=== PATIENT | female | born 1990 | race Caucasian/White ===

== ENCOUNTER 2017-10-11 01:15 | Emergency (ER) | payer OTHER ==
[~2017-10-11] VITALS: Ht 165.1 cm; Wt 52.0 kg
[2017-10-11 01:16] VITALS: BP 159/74; PULSE 110; RESP 16; TEMP 98.6; O2SAT 97
[2017-10-11] MEDS ORDERED: PREN29TA PO (01:43)
[2017-10-11 02:12] LABS: BILIRUBIN, URINE NEG (NEG); BLOOD, URINE MOD (NEG); GLUCOSE,URINE NEG (NEG); KETONE, URINE NEG (NEG); MUCUS URINE FEW /lpf (OCC); NITRITE,URINE NEG (NEG); PH, URINE 6.5 (5.0-8.5); SQUAMOUS EPITHELIAL CELL URINE 1 /hpf (0-5); URINE COLOR LIGHT-YELLOW (YELLW/STRAW); URINE LEUKOCYTE ESTERASE NEG (NEG)
--- NOTE | 2017-10-11 02:13 | PD ---
HPI Chief Complaint: Related Problem Time Seen by Provider: 02:12 Travel History International Travel<30 days: No Contact w/Intl Traveler<30days: No Traveled to known affect area: No History of Present Illness HPI 27-year-old female patient presents to the ER today, 14 weeks , normal , , states that she started having vaginal bleeding at around 11 PM last night. She states she only has mild cramping. She denies any other issues. Modifying Factors: None Associated Signs & Symptoms: and vaginal bleeding Risk Factors: None PFSH Past Medical History Medical History: Denies Significant Hx ?: LMP: 07/05/17 : 1 Para: 0 Past Surgical History Appendectomy: Yes Social History Alcohol Use: No Tobacco Use: No Substance Use: No Allergies-Medications (Allergen,Severity, Reaction): Coded Allergies: No Known Allergies (Unverified , 10/11/17) Reported Meds & Prescriptions Reported Meds & Active Scripts Active Reported Plus Iron 29-1 mg ( Vit-Iron Carbonyl) 29 Mg Iron-1 Mg Tab 1 Tab PO DAILY Review of Systems Except as stated in HPI: all other systems reviewed are Neg Physical Exam Narrative GENERAL: Well-developed young female patient currently in mild distress. Awake and oriented 3. SKIN: Focused skin assessment warm/dry. HEAD: Atraumatic. Normocephalic. EYES: Pupils equal and round. No scleral icterus. No injection or drainage. ENT: No nasal bleeding or discharge. Mucous membranes pink and moist. NECK: Trachea midline. No JVD. Supple. CARDIOVASCULAR: Regular rate and rhythm. No murmur appreciated. RESPIRATORY: No accessory muscle use. Clear to auscultation. Breath sounds equal bilaterally. GASTROINTESTINAL: Abdomen soft, non-tender, nondistended. Hepatic and splenic margins not palpable. GENITOURINARY: Normal external genitalia without lesions or erythema. Vaginal vault with blood. Cervical os was closed without drainage. No cervical motion tenderness. Uterus nontender and appropriately enlarged. Bilateral adnexa nontender without masses. MUSCULOSKELETAL: No obvious deformities. No clubbing. No cyanosis. No edema. NEUROLOGICAL: Awake and alert. No obvious cranial nerve deficits. Motor grossly within normal limits. Normal speech. PSYCHIATRIC: Appropriate mood and affect; insight and judgment normal. Data Data Last Documented VS Vital Signs Date Time Temp Pulse Resp B/P (MAP) Pulse Ox O2 Delivery O2 Flow Rate FiO2 10/11/17 01:16 98.6 110 16 159/74 (102) 97 Room Air Orders Orders Beta Hcg (Quant/Titer) (10/11/17 01:31) Complete Blood Count With Diff (10/11/17 01:31) Basic Metabolic Panel (Bmp) (10/11/17 01:31) Complete Rh (10/11/17 01:31) Urinalysis - C+S If Indicated (10/11/17 01:31) Ed Discharge Order (10/11/17 03:17) Labs Laboratory Tests Test 10/11/17 01:57 White Blood Count 8.2 TH/MM3 Red Blood Count 3.84 MIL/MM3 Hemoglobin 11.9 GM/DL Hematocrit 33.1 % Mean Corpuscular Volume 86.3 FL Mean Corpuscular Hemoglobin 30.9 PG Mean Corpuscular Hemoglobin Concent 35.8 % Red Cell Distribution Width 13.1 % Platelet Count 256 TH/MM3 Mean Platelet Volume 7.3 FL Neutrophils (%) (Auto) 61.7 % Lymphocytes (%) (Auto) 28.6 % Monocytes (%) (Auto) 8.7 % Eosinophils (%) (Auto) 0.7 % Basophils (%) (Auto) 0.3 % Neutrophils # (Auto) 5.1 TH/MM3 Lymphocytes # (Auto) 2.3 TH/MM3 Monocytes # (Auto) 0.7 TH/MM3 Eosinophils # (Auto) 0.1 TH/MM3 Basophils # (Auto) 0.0 TH/MM3 CBC Comment DIFF FINAL Differential Comment Urine Color LIGHT-YELLOW Urine Turbidity CLEAR Urine pH 6.5 Urine Specific Lenore 1.007 Urine Protein NEG mg/dL Urine Glucose (UA) NEG mg/dL Urine Ketones NEG mg/dL Urine Occult Blood MOD Urine Nitrite NEG Urine Bilirubin NEG Urine Urobilinogen LESS THAN 2.0 MG/DL Urine Leukocyte Esterase NEG Urine RBC 1 /hpf Urine WBC LESS THAN 1 /hpf Urine Squamous Epithelial Cells 1 /hpf Urine Mucus FEW /lpf Microscopic Urinalysis Comment CULT NOT INDICATED Blood Urea Nitrogen 9 MG/DL Creatinine 0.53 MG/DL Random Glucose 77 MG/DL Calcium Level 8.7 MG/DL Sodium Level 138 MEQ/L Potassium Level 3.7 MEQ/L Chloride Level 108 MEQ/L Carbon Dioxide Level 21.9 MEQ/L Anion Gap 8 MEQ/L Estimat Glomerular Filtration Rate 137 ML/MIN Human Chorionic Gonadotropin, Quant 75272 MIU/ML MDM Medical Decision Making Medical Screen Exam Complete: Yes Emergency Medical Condition: Yes Medical Record Reviewed: Yes Interpretation(s) Laboratory Tests Test 10/11/17 01:57 Red Blood Count 3.84 MIL/MM3 (4.00-5.30) Hematocrit 33.1 % (35.0-46.0) Monocytes (%) (Auto) 8.7 % (0.0-8.0) Urine Occult Blood MOD (NEG) Urine Mucus FEW /lpf (OCC) Chloride Level 108 MEQ/L (98-107) Human Chorionic Gonadotropin, Quant [id number] MIU/ML (0-5) Differential Diagnosis and vaginal bleeding: Threatened AB versus ectopic versus completed AB Narrative Course Rh+. Cervical os is closed. There is blood within the vaginal vault. Transabdominal ultrasound shows IUP with good heart tones and movements. At this point, my plan would be to release the patient to follow-up with her RN ADMIT in the morning. Pelvic rest. Return for any worsening in bleeding, pain, and as needed. The plan was discussed with the patient and she states understanding. Procedures Procedure Narrative Transabdominal ultrasound was done by me, shows IUP with good heart tones and movements. Heart rate 145. Diagnosis Primary Impression: Threatened Disposition: DISCHARGE HOME Condition: Stable Nathalia Da Silva MD Oct 11, 2017 02:13
[2017-10-11 02:16] LABS: AUTOMATED NEUTROPHIL # 5.1 TH/MM3 (1.8-7.7); BASOPHIL % 0.3 % (0.0-2.0); EOSINOPHIL # 0.1 TH/MM3 (0-0.4); EOSINOPHIL % 0.7 % (0.0-4.0); HEMATOCRIT 33.1 % (35.0-46.0); HEMOGLOBIN 11.9 GM/DL (11.6-15.3); LYMPH % 28.6 % (9.0-44.0); LYMPHOCYTE # 2.3 TH/MM3 (1.0-4.8); MEAN CELL VOLUME 86.3 FL (80.0-100.0); MEAN CORPUSCULAR HEMOGLOBIN 30.9 PG (27.0-34.0); MEAN CORPUSCULAR HGB CONC 35.8 % (32.0-36.0); MEAN PLATELET VOLUME 7.3 FL (7.0-11.0); MONO % 8.7 % (0.0-8.0); MONOCYTE # 0.7 TH/MM3 (0-0.9); NEUT % 61.7 % (16.0-70.0); PLATELET COUNT 256 TH/MM3 (150-450); RED BLOOD COUNT 3.84 MIL/MM3 (4.00-5.30); RED CELL DISTRIBUTION WIDTH 13.1 % (11.6-17.2); WHITE BLOOD COUNT 8.2 TH/MM3 (4.0-11.0)
[2017-10-11 02:34] LABS: BICARBONATE 21.9 MEQ/L (21.0-32.0); CALCIUM 8.7 MG/DL (8.5-10.1); CREATININE 0.53 MG/DL (0.50-1.00)
[2017-10-11 03:28] VITALS: BP 107/72; PULSE 88; RESP 18; O2SAT 98
== END 2017-10-11 04:19 | disposition home or self-care (01) ==
LOC: NEPE 01:15
DX: O20.0 Threatened abortion (principal); Z3A.14 14 weeks gestation of pregnancy
CPT/HCPCS: 80048; 81001; 84702; 85025; 86901

== ENCOUNTER 2018-03-30 17:47 | Inpatient (IN) ==
[2018-03-30] MEDS ORDERED: fentaNYL Citrate Inj 100 MCG/2 ML Ampul IV.PUSH PRN ×2 (18:29)
[2018-03-30] MEDS ORDERED: Sod Chloride 0.9% Inj 1,000 ML IV.CONT PRN (18:29)
[2018-03-30] MEDS ORDERED: Oxytocin 30 Units/500ml Premix 30 UNITS/500 ML BAG IV.SIG ONE (18:29)
[2018-03-30] MEDS ORDERED: Sodium Chlor 0.9% Inj 500 ML IV.SIG PRN (18:29)
[2018-03-30] MEDS ORDERED: Naloxone Inj 0.4 MG/ML Vial IV.PUSH PRN (18:29)
[2018-03-30] MEDS ORDERED: Citric Acid/Sodium Citrate Liq 30 ML UDC PO SCH (18:30)
--- NOTE | 2018-03-30 19:08 | P.HPOB ---
History of Present Illness Primary Care Physician: NOT REQUIRED Dr. Mack Chief Complaint: Contractions History of Present Illness: Patient is a 28-year-old white female 38 weeks goes to the [facility] clinic, and presents complaining of contractions. Denies bleeding or leakage of fluid. She does complain of a headache recently but denies visual changes right upper quadrant pain however she has had some swelling as well in the feet and legs. Her blood pressures are high here 146/97 174/97 158/92. NST is reactive and she is nish. Weeks Gestation:: 38 Para: 0 : 1 - Inpatient Certification I certify that the inpatient services were ordered in accordance with Medicare regulations governing the order. This includes certification that hospital inpatient services are reasonable and necessary and in the case of services not specified as inpatient-only under 42 CFR 419.22(n), that they are appropriately provided as inpatient services in accordance to with the 2-midnight benchmark under 43 CFR 412.3(e) Estimated Total Length of Stay (Days): 3 Plans for Post Hospital Care: Home Review of Systems Constitutional: Reports headache(s) Eyes: Denies blind spots, Denies blurry vision, Denies bulging eyes, Denies change in vision, Denies double vision, Denies discharge, Denies dry eyes, Denies floaters, Denies irritation, Denies itchy eyes, Denies loss of vision, Denies pain, Denies requires corrective lenses, Denies sensitivity to light, Denies other Cardiovascular: Denies chest pain, Denies chest pain at rest, Denies chest pain with activity, Denies excessive sweating, Denies fainting, Denies fast heart rate, Denies foot swelling, Denies generalized swelling, Denies irregular heart rhythm, Denies leg pain with activity, Denies leg sores, Denies leg swelling, Denies lightheadedness, Denies radiating jaw, neck or arm pain, Denies rapid, pounding, or irregular heartbeat, Denies shortness of breath, Denies shortness of breath with activity, Denies shortness of breath when lying down, Denies shortness of breath causing sudden awakening, Denies slow heart rate, Denies other Respiratory: Denies change in phlegm color, Denies chest congestion, Denies cough, Denies coughing up blood, Denies excessive phlegm production, Denies pain on inspiration, Denies pain with cough, Denies shortness of breath, Denies shortness of breath with activity, Denies snoring, Denies stridor, Denies wheezing, Denies other Gastrointestinal: Reports abdominal pain Genitourinary: Denies abnormal periods, Denies abnormal vaginal bleeding, Denies absent period, Denies bleeding between periods, Denies blood in urine, Denies difficulty starting urination, Denies difficulty urinating, Denies dribbling after urination, Denies frequent nighttime urination, Denies genital itching, Denies genital lesions, Denies heavy periods, Denies hot flashes, Denies light periods, Denies nipple discharge, Denies painful intercourse, Denies painful periods, Denies painful urination, Denies pelvic pain, Denies prolapse symptoms, Denies sexual problems, Denies side pain, Denies urinary incontinence, Denies urinary urgency, Denies vaginal discharge, Denies vaginal dryness, Denies vaginal odor, Denies vaginal itching, Denies other Neurologic: Denies abnormal hearing, Denies abnormal movements, Denies abnormal speech, Denies abnormal walking, Denies behavioral changes, Denies burning sensations, Denies confusion, Denies dizziness, Denies fainting, Denies frequent falls, Denies headache(s), Denies lack of coordination, Denies localized weakness, Denies loss of vision, Denies memory loss, Denies numbness, Denies other visual disturbances, Denies radiating pain, Denies restless legs, Denies convulsions, Denies seizure-like activity, Denies sensory deficit, Denies tingling, Denies tingling/numbness/burning sensations, Denies tremor(s), Denies unsteadiness, Denies weakness, Denies other Medications and Allergies Active Medications: Active Medications Citric Acid/Sodium Citrate (Sodium Citrate/Citric Acid Liq) 30 ml PO [employer]DRODYNAMICS [employer] [facility] Stop: 04/03/18 18:29 Fentanyl Citrate (Fentanyl Inj) 50 mcg IV.PUSH Q1H PRN PRN Reason: Pain Scale 3 - 5 Fentanyl Citrate (Fentanyl Inj) 100 mcg IV.PUSH Q1H PRN PRN Reason: PAIN SCALE 6 TO 10 Lactated Ringer's (Lr 1000 Ml Inj) 1,000 mls @ 125 mls/hr IV.CONT .Q8H [facility] Lactated Ringer's (Lr 1000 Ml Inj) 1,000 mls @ 3,000 mls/hr IV.SIG UNSCH PRN PRN Reason: compromise or epidural Sodium Chloride (Ns Inj) 500 mls @ 1,000 mls/hr IV.SIG UNSCH PRN PRN Reason: SEE LABEL COMMENTS Sodium Chloride (Ns Inj) 1,000 mls @ 100 mls/hr IV.CONT .Q10H PRN PRN Reason: SEE LABEL COMMENTS Lidocaine HCl (Xylocaine 1% Inj) 0.1 ml I-DERMAL PRN PRN PRN Reason: For IV start Stop: 04/02/18 18:28 Lidocaine HCl (Xylocaine 1% Inj) 10 ml INFILTRATN PRN PRN PRN Reason: For episiotomy repair Stop: 04/01/18 18:28 Mineral Oil (Muri-Lube Oil) 10 ml TOPICAL PRN PRN PRN Reason: PRN perineal massage Misoprostol (Cytotec) 25 mcg VAGINAL Q4HR [facility] Naloxone HCl (Narcan Inj) 0.1 mg IV.PUSH Q2M PRN PRN Reason: for opiate reversal Sodium Chloride (Ns Flush) 2 ml IV.FLUSH BID [facility]GAN Sodium Chloride (Ns Flush) 2 ml IV.FLUSH PRN PRN PRN Reason: FLUSH AFTER USING IV ACCESS Allergies Allergy/AdvReac Type Severity Reaction Status Date / Time No Known Allergies Allergy Unverified 10/11/17 01:21 Home Medications Medication Instructions Recorded Confirmed Type [id number] ac-dha 1 PO DAILY 03/30/18 History Exam Vital signs: Vital Signs 03/30/18 18:12 03/30/18 18:13 03/30/18 18:22 Temperature 98.1 F Pulse Rate 81 72 Respiratory Rate 18 Blood Pressure 146/97 H 158/92 H Intake & Output 03/30/18 03/30/18 03/31/18 06:59 18:59 06:59 Weight 72.575 kg - Constitutional no acute distress - Routine HEENT Exam Head: Present: normocephalic, atraumatic Eye: Present: PERRL - Routine Respiratory Exam Present: CTA bilaterally - Routine Cardiovascular Exam Present: RRR - Routine Abdominal Exam Present: soft Comments: Size equal dates - Routine Exam Comments: Cervix is fingertip to 1 cm/50%/-3 and very posterior - Routine Extremities Exam Present: edema - Routine Neurological Exam Present: alert, oriented X3, CN II-XII intact Caprini VTE Risk Assessment Caprini VTE Risk Assessment: No/Low Risk (score <= 1) Caprini Risk Assessment Model: Point Value = 1 Point Value = 2 Point Value = 3 Point Value = 5 Age 41-60 Minor surgery BMI > 25 kg/m2 Swollen legs Varicose veins or History of unexplained or recurrent spontaneous Oral contraceptives or hormone replacement Sepsis (< 1 month) Serious lung disease, including pneumonia (< 1 month) Abnormal pulmonary function Acute myocardial infarction Congestive heart failure (< 1 month) History of inflammatory bowel disease Medical patient at bed rest Age 61-74 Arthroscopic surgery Major open surgery (> 45 min) Laparoscopic surgery (> 45 min) Malignancy Confined to bed (> 72 hours) Immobilizing plaster cast Central venous access Age >= 75 History of VTE Family history of VTE Factor V Leiden Prothrombin [id number] Lupus anticoagulant Anticardiolipin antibodies Elevated serum homocysteine Heparin-induced thrombocytopenia Other congenital or acquired thrombophilia Stroke (< 1 month) Elective arthroplasty Hip, pelvis, or leg fracture Acute spinal cord injury (< 1 month) Prophylaxis Regimen: Total Risk Factor Score Risk Level Prophylaxis Regimen 0-1 Low Early ambulation 2 Moderate Order ONE of the following: *Sequential Compression Device (SCD) *Heparin 5000 units SQ BID 3-4 Higher Order ONE of the following medications: *Heparin 5000 units SQ TID *Enoxaparin/Lovenox 40 mg SQ daily (WT < 150 kg, CrCl > 30 mL/min) *Enoxaparin/Lovenox 30 mg SQ daily (WT < 150 kg, CrCl > 10-29 mL/min) *Enoxaparin/Lovenox 30 mg SQ BID (WT < 150 kg, CrCl > 30 mL/min) AND/OR *Sequential Compression Device (SCD) 5 or more Highest Order ONE of the following medications: *Heparin 5000 units SQ TID (Preferred with Epidurals) *Enoxaparin/Lovenox 40 mg SQ daily (WT < 150 kg, CrCl > 30 mL/min) *Enoxaparin/Lovenox 30 mg SQ daily (WT < 150 kg, CrCl > 10-29 mL/min) *Enoxaparin/Lovenox 30 mg SQ BID (WT < 150 kg, CrCl > 30 mL/min) AND *Sequential Compression Device (SCD) Assessment and Plan - Diagnosis (1) Uterine contractions during Code(s): O62.2 - Other uterine inertia Status: Acute (2) Gestational hypertension affecting first Code(s): O13.9 - Gestational [-induced] hypertension without significant proteinuria, unspecified trimester Status: Acute - Plan Plan to admit the patient to labor and delivery mainly for blood pressures in early labor she is nish her cervix is minimally dilated at this time. heart rate tracing is reactive. She is nish. However blood pressures are too high 140-150s over 90s. Plan to begin cervical ripening with Cytotec and induce /augment tomorrow due to hypertension, if her contractions increase on her own or she progresses in labor on her own and all the better plan the delivery in the usual way
[2018-03-30 20:08] LABS: Baso % (Auto) 0.3 % (0.0-2.0); Eos # (Auto) 0.1 th/mm3 (0.0-0.4); Eos % (Auto) 0.6 % (0.0-4.0); Hematocrit 34.3 % (35.0-46.0); Hemoglobin 11.9 gm/dL (11.6-15.3); Lymph # (Auto) 1.7 th/mm3 (1.0-4.8); Lymph % (Auto) 18.1 % (9.0-44.0); Mean Corpuscular HGB Conc 34.8 % (32.0-36.0); Mean Corpuscular Volume 89.1 fL (80.0-100.0); Mean Platelet Volume 9.7 fL (7.0-11.0); Mono # (Auto) 0.8 th/mm3 (0.0-0.9); Mono % (Auto) 8.5 % (0.0-8.0); Neut % (Auto) 72.5 % (16.0-70.0); Platelet Count 244 th/mm3 (150-450); Red Blood Count 3.85 mil/mm3 (4.00-5.30); Red Cell Distribution Width 13.6 % (11.6-17.2); White Blood Count 9.7 th/mm3 (4.0-11.0)
[2018-03-30 20:25] LABS: Albumin 2.8 g/dL (3.4-5.0); Anion Gap 11 meq/L (5-15); Aspartate Aminotransferase 17 U/L (15-37); Blood Urea Nitrogen 10 mg/dL (7-18); Calcium 8.9 mg/dL (8.5-10.1); Carbon Dioxide 22.5 meq/L (21.0-32.0); Chloride 109 meq/L (98-107); Glomerular Filtration Rate Greater Than 89 mL/min (>89); Glucose,Random 70 mg/dL (74-106); Potassium 3.8 meq/L (3.5-5.1); Sodium 142 meq/L (136-145)
[2018-03-30 20:26] LABS: Alanine Aminotransferase 14 U/L (10-53)
[2018-03-30 20:28] LABS: Alkaline Phosphatase 172 U/L (45-117); Total Protein 7.2 g/dL (6.4-8.2)
[2018-03-30 21:04] LABS: Amphetamine Urine With Conf Neg (Neg); Benzodiazepine Urine With Conf Neg (Neg)
[2018-03-30 21:05] LABS: Protein/Creatinine Ratio,Urine 0.72 (0.00-0.14)
[2018-03-30] MEDS ORDERED: Oxytocin 30 Units/500ml Premix 30 UNITS/500 ML BAG IV.SIG PRN (22:50)
[2018-03-30] MEDS ORDERED: Oxytocin 30 Units/500ml Premix 30 UNITS/500 ML BAG IV.CONT PRN (23:22)
[2018-03-31] MEDS ORDERED: fentaNYL 2MCG-Bupiv 0.125% Epi 150 ML EPIDURAL ONE ×2 (02:21→12:41)
[2018-03-31] MEDS ORDERED: Bupivacaine PF 0.25% Inj 10 ML Vial ONE ×2 (02:22→04:06)
--- NOTE | 2018-03-31 07:55 | P.OBLABOR ---
Subjective Interval history: arrived in early labor last evening with elevated BPs not meeting criteria for magnesium but appropriate for admission. Labs normal. started on low dose pitocin and now 4 cm BBOW. Quite miserable and epidrual to be redone. will then AROM and anticipate . Objective Vital Signs: Vital Signs - 8 hr 03/31/18 00:01 03/31/18 00:31 03/31/18 02:35 Pulse Rate 73 64 76 Blood Pressure 164/89 H 154/81 H 153/87 H 03/31/18 02:41 03/31/18 03:25 03/31/18 04:11 Pulse Rate 67 70 72 Blood Pressure 144/78 H 166/94 H 169/86 H 03/31/18 05:35 Pulse Rate 67 Blood Pressure 141/88 H Objective: Pelvic Exam: Cervix: [-] Dilatation: [-] Effacement: [-] Station: [-] Presentation: [-] Membranes: [intact or ruptured] Uterine Contractions: [-] FHT's: Category: [-] Baseline: [-] Reactive: [-] Variability: [-] Decels: [-] Assessment and Plan - Plan Plan to admit the patient to labor and delivery mainly for blood pressures in early labor she is nish her cervix is minimally dilated at this time. heart rate tracing is reactive. She is nish. However blood pressures are too high 140-150s over 90s. Plan to begin cervical ripening with Cytotec and induce /augment tomorrow due to hypertension, if her contractions increase on her own or she progresses in labor on her own and all the better plan the delivery in the usual way
[2018-03-31] MEDS ORDERED: Lidocaine 2%/Epinephrine 1:200,000 PF Inj 20 ML Vial INFILTRATN ONE (12:00)
--- NOTE | 2018-03-31 13:27 | P.OBLABOR ---
Subjective Interval history: having pain w contractins, just got bolus Objective Vital Signs: Vital Signs - 8 hr 03/31/18 05:35 03/31/18 06:55 03/31/18 07:40 Temperature Pulse Rate 67 98 H 69 Respiratory Rate Blood Pressure 141/88 H 169/100 H 159/95 H 03/31/18 08:25 03/31/18 08:40 03/31/18 08:55 Temperature 98.3 F Pulse Rate 84 70 71 Respiratory Rate 20 Blood Pressure 156/85 H 125/66 126/68 03/31/18 09:04 03/31/18 09:15 03/31/18 09:25 Temperature 98.5 F Pulse Rate 74 76 Respiratory Rate 18 Blood Pressure 161/82 H 148/87 H 03/31/18 09:40 03/31/18 10:10 03/31/18 10:30 Temperature Pulse Rate 75 76 65 Respiratory Rate 18 16 Blood Pressure 143/79 H 142/82 H 140/67 03/31/18 10:40 03/31/18 10:55 03/31/18 11:10 Temperature Pulse Rate 66 67 81 Respiratory Rate Blood Pressure 113/60 124/64 163/83 H 03/31/18 11:25 03/31/18 11:40 03/31/18 11:55 Temperature 98.1 F Pulse Rate 74 74 73 Respiratory Rate 18 Blood Pressure 163/88 H 154/80 H 155/90 H 03/31/18 12:10 Temperature Pulse Rate 67 Respiratory Rate Blood Pressure 169/89 H Objective: Pelvic Exam: Cervix: 7-8/90/0 mild molding. OT Ruptured FHT's: Category: I 130, + reactive, neg decel, Ctx q 2 min, iupc placed Assessment and Plan - Plan G1 38 wk, admitted for PIH 1) IOL- 7-8/90/0, on pitocin of 8. right side of cervix developing edema. discussed possibility of arrest, IUPC adequate contractions, over 200mvu, will decrease pit to 6. 2) Pre-e- severe range bp intermittently, will start magnesium 3) GBS neg
[2018-03-31] MEDS ORDERED: Labetalol HCl Inj 100 MG/20 ML Vial IV.PUSH ONE (14:00)
[2018-03-31] MEDS ORDERED: Mag Sulf/Water 40 gm/1000 ml 40 GM/1,000 ML BAG IV.CONT SCH (14:00)
[2018-03-31] MEDS ORDERED: Mag Sulf/Water 4 gm/100 ml 100 ML IV.SIG ONE (14:00)
[2018-03-31] MEDS ORDERED: Calcium Chloride Inj 0.34 GM in Sodium Chlor 0.9% Inj 100 ML IV.SIG PRN (19:25)
[2018-03-31] MEDS ORDERED: Morphine Sulfate PF Inj 5 MG/10 ML Ampul ONE (22:07)
[2018-03-31] MEDS ORDERED: Citric Acid/Sodium Citrate Liq 30 ML UDC PO SCH (22:15)
[2018-03-31] MEDS ORDERED: Naloxone Inj 0.4 MG/ML Vial IV.PUSH PRN (23:00)
[2018-03-31] MEDS ORDERED: Oxytocin 30 Units/500ml Premix 30 UNITS/500 ML BAG IV.SIG ONE (23:49)
[2018-03-31] MEDS ORDERED: Acetaminophen 325 MG Tablet PO PRN (23:49)
[2018-03-31] MEDS ORDERED: Zolpidem Tartrate 5 MG Tablet PO PRN (23:49)
[2018-03-31] MEDS ORDERED: Simethicone 80 MG Chew Tablet PO PRN (23:49)
--- NOTE | 2018-04-01 00:04 | P.OBDELI ---
Procedure Note - Pre Op Diagnosis (1) Pre-eclampsia, severe (2) Arrested labor - Post Op Diagnosis (1) Arrested labor (2) Pre-eclampsia, severe Performed by: Sasha Paez MD Procedure: Primary Low Transverse Section Indication for Delivery: Other (arrest of descent) Informed Consent Obtained: For anesthesia, For procedure Confirmed Correct: Patient, Procedure, Site, Time-out taken Anesthesia: Epidural Medication Prior to Procedure: As documented in eMAR Monitoring During Procedure: Blood pressure monitoring, Pulse oximetry Urinary Catheter: Inserted using sterile technique, To dependent drainage, ml urine output (300) Sterile Preparation: With 2% chlorexidine (Hibiclens) Position: Supine with wedge to right side, Supine with safety belt applied - Operative Features Skin Incision: Pfannenstiel Uterine Incision: Low transverse w/knife / blunt ext Membranes Ruptured: Artificially, Previously, Appearance of fluid (cl) Presentation: Occiput anterior Status of : Viable, Cord blood, Nursery present Placenta Delivered: Intact Medications: Antibiotics, Oxytocin, Prostaglandins Estimated blood loss (mL): 600 Procedure Tolerated: Well Maternal Complications: Uterine atony Maternal Condition: Stable Baby Condition: Stable Procedure in Detail: Indication: Arrest of descent, cephalopelvic disproportion Complications: none Counts: correct x 3 Intraoperative findings: Normal ovaries bilaterally, normal tubes . Uterus with initial poor tone, responded well to hemabate. Procedure in Detail: After review of informed consent, pt was taken to the OR where epidural anesthesia was redosed w/o complication. She had vilchis placed in sterile fashion. SCDs to bilateral extremities. Ancef 1 g IV given preincision. Abdomen and perineum were prepped and draped in sterile fashion. Epidual level tested and appeared adequate. A Pfannenstiel skin incision was made with the scalpel and carried down to the underlying layer of fascia with the bovie.The fascia was incised in the midline; this incision was extended bilaterally w Moeller scissors. The superior edge, followed by the inferior edge, of the fascia was grasped with marcelino clamps, elevated and from the rectus muscles with moeller scissors and bluntly. Rectus musckels were in the middline. Peritoneum was entered bluntly. Bladder blade was inserted. A bladder flap was created with Metzenbaum scissors. The bladder blade was reintroduced. A low transverse uterine incision was made with the scalpel and extended bluntly. Clear amniotic fluid noted. The head was suctioned in the pelvis, significant molding noted. The head was flexed, suction released, and the head was brought to the level of the hysterotomy. Fundal pressure was used to deliver the head and the rest of the body readily followed. There was a short umbilical cord. Delayed cord clamping of 45 seconds was performed. Baby was handed off to team. Cord blood collected. IV infusion of pitocin was started immediately after the delivery of the . The placenta was delivered with cord traction and uterine massage. The uterus was exteriorized . The uterine cavity was cleared with moistened laparotomy sponges. Poor tone was noted and hemabate was given. The uterus was repaired in two layers with number 1 chromic in a running locked fashion followed by an imbricating layer. The posterior cul de sac was irrigated and suctioned. The uterus was noted to be hemostatic. It was returned to the abdomen. The peritoneum was closed with 2-0 chromic in a running fashion. The fascia was closed with number 1 vicryl in a running fashion. The peritoneum was closed with 2-0 chromic in a running fashion. Subcutaneous tissue was irrigated and hemostasis obtained w the bovie. The subcutaneous tissue was undermined with the bovie to ensure a tension free approximation; the subcutaneous tissue was closed with 2-0 chromic in a running fashion. The skin was closed with 3-0 monocryl in a subcuticular fashion. Steristrips and sterile pressure dressing was placed. PT was sent to pacu in stable condition. - : Male Infant Male A Infant Delivery Date: 03/31/18 Infant Delivery Time: 22:00 Weight: 3.82 kg score (1 min): 9 score (5 min): 9
[2018-04-01] MEDS ORDERED: Oxytocin 30 Units/500ml Premix 30 UNITS/500 ML BAG IV.SIG PRN (04:50)
[2018-04-01 06:39] LABS: Baso % (Auto) 0.1 % (0.0-2.0); Hematocrit 28.5 % (35.0-46.0); Hemoglobin 9.7 gm/dL (11.6-15.3); Lymph # (Auto) 1.2 th/mm3 (1.0-4.8); Lymph % (Auto) 4.9 % (9.0-44.0); Mean Corpuscular Hemoglobin 30.4 pg (27.0-34.0); Mean Corpuscular Volume 89.4 fL (80.0-100.0); Mono # (Auto) 1.1 th/mm3 (0.0-0.9); Mono % (Auto) 4.2 % (0.0-8.0); Neut # (Auto) 22.8 th/mm3 (1.8-7.7); Neut % (Auto) 90.8 % (16.0-70.0); Platelet Count 221 th/mm3 (150-450); Red Blood Count 3.19 mil/mm3 (4.00-5.30); Red Cell Distribution Width 13.8 % (11.6-17.2); White Blood Count 25.2 th/mm3 (4.0-11.0)
--- NOTE | 2018-04-01 07:38 | P.PNOB ---
Subjective Post op day: 1 Interval history: Doing well, feels somewhat dizzy, and tired, hard to keep her eyes open, has felt this way since after her , no shortness of breath. Pain controlled , scant vaginal bleeding, no headaches, visual changes, epigastric pain right upper quadrant pain. Objective Vital Signs/I&O: Vital Signs 03/31/18 07:40 03/31/18 08:25 03/31/18 08:40 Temperature 98.3 F Pulse Rate 69 84 70 Respiratory Rate 20 Blood Pressure 159/95 H 156/85 H 125/66 03/31/18 08:55 03/31/18 09:04 03/31/18 09:15 Temperature 98.5 F Pulse Rate 71 74 Respiratory Rate 18 Blood Pressure 126/68 161/82 H 03/31/18 09:25 03/31/18 09:40 03/31/18 10:10 Temperature Pulse Rate 76 75 76 Respiratory Rate 18 Blood Pressure 148/87 H 143/79 H 142/82 H 03/31/18 10:30 03/31/18 10:40 03/31/18 10:55 Temperature Pulse Rate 65 66 67 Respiratory Rate 16 Blood Pressure 140/67 113/60 124/64 03/31/18 11:10 03/31/18 11:25 03/31/18 11:40 Temperature 98.1 F Pulse Rate 81 74 74 Respiratory Rate 18 Blood Pressure 163/83 H 163/88 H 154/80 H 03/31/18 11:55 03/31/18 12:10 03/31/18 12:25 Temperature Pulse Rate 73 67 68 Respiratory Rate Blood Pressure 155/90 H 169/89 H 161/79 H 03/31/18 12:40 03/31/18 13:00 03/31/18 13:10 Temperature 98.9 F Pulse Rate 69 71 73 Respiratory Rate 18 Blood Pressure 164/87 H 148/68 H 148/76 H 03/31/18 13:25 03/31/18 13:55 03/31/18 15:00 Temperature Pulse Rate 84 75 81 Respiratory Rate 18 Blood Pressure 156/91 H 147/75 H 135/69 03/31/18 15:25 03/31/18 15:40 03/31/18 16:00 Temperature 99.3 F Pulse Rate 81 82 83 Respiratory Rate 16 Blood Pressure 129/82 137/83 136/81 03/31/18 16:10 03/31/18 16:15 03/31/18 17:10 Temperature Pulse Rate 87 82 80 Respiratory Rate 16 Blood Pressure 130/74 132/66 126/60 03/31/18 17:15 03/31/18 17:45 03/31/18 18:20 Temperature Pulse Rate 82 95 H 110 H Respiratory Rate 16 Blood Pressure 128/62 158/91 H 158/81 H 03/31/18 18:30 03/31/18 18:45 03/31/18 19:15 Temperature 98.5 F Pulse Rate 96 H Respiratory Rate 20 Blood Pressure 154/85 H 159/79 H 03/31/18 20:00 03/31/18 20:02 03/31/18 20:45 Temperature Pulse Rate 97 H 101 H Respiratory Rate 18 Blood Pressure 152/74 H 151/79 H 145/81 H 03/31/18 21:00 03/31/18 21:06 03/31/18 21:15 Temperature Pulse Rate 91 H 95 H Respiratory Rate 20 Blood Pressure 141/77 H 148/80 H 03/31/18 21:31 03/31/18 22:00 03/31/18 22:15 Temperature Pulse Rate 98 H Respiratory Rate Blood Pressure 142/80 H 129/81 03/31/18 22:18 03/31/18 23:50 04/01/18 00:00 Temperature 98.2 F Pulse Rate 95 H 90 101 H Respiratory Rate 18 18 Blood Pressure 140/78 166/86 H 149/81 H 04/01/18 00:15 04/01/18 00:30 04/01/18 00:41 Temperature Pulse Rate 102 H 94 H Respiratory Rate 18 18 20 Blood Pressure 156/84 H 148/84 H 04/01/18 00:58 04/01/18 02:00 04/01/18 02:21 Temperature Pulse Rate 80 92 H Respiratory Rate 18 18 Blood Pressure 146/75 H 153/77 H 04/01/18 03:00 04/01/18 04:00 04/01/18 04:02 Temperature 98.7 F Pulse Rate 81 80 Respiratory Rate 18 Blood Pressure 133/63 131/58 L 04/01/18 05:00 04/01/18 05:43 04/01/18 05:44 Temperature 98.4 F Pulse Rate 91 H Respiratory Rate 18 Blood Pressure 146/54 H 04/01/18 07:00 Temperature Pulse Rate 88 Respiratory Rate 18 Blood Pressure 136/61 Result Diagrams: 04/01/18 05:58 03/30/18 19:30 Objective Remarks: GENERAL: Well-nourished, well-developed patient. CARDIOVASCULAR: Regular rate and rhythm without murmurs, gallops, or rubs. RESPIRATORY: Breath sounds equal bilaterally. No accessory muscle use. ABDOMEN/GI: Abdomen soft, non-tender, bowel sounds present. Bandage: Clean, dry and intact. Fundus: Firm, non-tender at umbilicus. GENITOURINARY: Light to moderate bleeding. EXTREMITIES: No cyanosis or edema, non-tender, without signs of DVT. SCDs on Medications and IVs: Active Medications Acetaminophen (Tylenol) 650 mg PO Q6H PRN PRN Reason: PAIN SCALE 1 TO 2 Diphenhydramine HCl (Benadryl) 50 mg PO Q6H PRN PRN Reason: MILD TO MODERATE ITCHING Stop: 04/01/18 22:59 Diphenhydramine HCl (Benadryl Inj) 25 mg IV.PUSH Q6H PRN PRN Reason: MILD TO MODERATE ITCHING Stop: 04/01/18 22:59 Diphtheria/Pertussis/Tetanus Vacc (Boostrix Vaccine Inj) 0.5 ml IM .ONCE ONE Stop: 04/01/18 16:01 Fentanyl Citrate (Fentanyl Inj) 50 mcg IV.PUSH Q1H PRN PRN Reason: Pain Scale 3 - 5 Fentanyl Citrate (Fentanyl Inj) 100 mcg IV.PUSH Q1H PRN PRN Reason: PAIN SCALE 6 TO 10 Oxytocin (Pitocin 30 Units/Ns 500 Ml Premix) 30 units in 500 mls @ 1 mls/hr IV.SIG TITRATE PRN; Protocol PRN Reason: For induction of labor Oxytocin (Pitocin 30 Units/Ns 500 Ml Premix) 30 units in 500 mls @ 1 mls/hr IV.CONT TITRATE PRN; Protocol PRN Reason: For induction of labor Lactated Ringer's (Lr 1000 Ml Inj) 1,000 mls @ 75 mls/hr IV.CONT .[id number] MORGAN Last Admin: 04/01/18 00:27 Dose: Not Given Magnesium Sulfate (Magnesium Sulfate/Water 40 Gm/1000 Ml Premix) 40 gm in 1, 000 mls @ 50 mls/hr IV.CONT Q24H MORGAN Stop: 04/01/18 22:00 Last Admin: 03/31/18 14:32 Dose: 2 gm/hr, 50 mls/hr Calcium Chloride 0.34 gm/ (Sodium Chloride) 103.4 mls @ 103.4 mls/hr IV.SIG UNSCH PRN PRN Reason: MAGNESIUM TOXICITY Oxytocin (Pitocin 30 Units/Ns 500 Ml Premix) 30 units in 500 mls @ 100 mls/hr IV.SIG PRN PRN PRN Reason: Heavy bleeding Stop: 04/02/18 04:49 Acetaminophen (Ofirmev Inj) 1,000 mg in 100 mls @ 400 mls/hr IV.SIG Q8H MORGAN Stop: 04/01/18 15:14 Lidocaine HCl (Xylocaine 1% Inj) 0.1 ml I-DERMAL PRN PRN PRN Reason: For IV start Stop: 04/02/18 18:28 Lidocaine HCl (Xylocaine 1% Inj) 10 ml INFILTRATN PRN PRN PRN Reason: For episiotomy repair Stop: 04/01/18 18:28 Measles/Mumps/Rubella Vaccine Live (M-M-R Ii Vaccine Inj) 0.5 ml SQ .ONCE ONE Stop: 04/01/18 16:01 Miscellaneous Information ([facility] [place] [facility]) 1 each OTHER UNSCH PRN PRN Reason: SEE LABEL COMMENTS Stop: 04/01/18 22:59 Naloxone HCl (Narcan Inj) 0.1 mg IV.PUSH Q2M PRN PRN Reason: for opiate reversal Naloxone HCl (Narcan Inj) 0.4 mg IV.PUSH UNSCH PRN PRN Reason: SEE LABEL COMMENTS Stop: 04/01/18 22:59 Ondansetron HCl (Zofran Odt) 4 mg PO Q4H PRN PRN Reason: NAUSEA OR VOMITING Last Admin: 03/31/18 09:19 Dose: 4 mg Oxycodone/Acetaminophen (Percocet 5/325 Mg) 1 tab PO Q4H PRN PRN Reason: PAIN SCALE 3 TO 5 Oxycodone/Acetaminophen (Percocet 5/325 Mg) 2 tab PO Q4H PRN PRN Reason: PAIN SCALE 6 TO 10 Simethicone (Mylicon Chew) 80 mg PO QID PRN PRN Reason: FLATULENCE Sodium Chloride (Ns Flush) 2 ml IV.FLUSH BID COUNT INCLUDES THE [facility] Last Admin: 04/01/18 00:22 Dose: Not Given Sodium Chloride (Ns Flush) 2 ml IV.FLUSH PRN PRN PRN Reason: FLUSH AFTER USING IV ACCESS Sodium Chloride (Ns Flush) 2 ml IV.FLUSH BID MORGAN Sodium Chloride (Ns Flush) 2 ml IV.FLUSH PRN PRN PRN Reason: FLUSH AFTER USING IV ACCESS Zolpidem Tartrate (Ambien) 5 mg PO HS PRN PRN Reason: INSOMNIA Assessment and Plan - Plan s/p PLTCS at 38w for arrest of descent. 1. Postoperative/ day #1: Afebrile, vital signs stable, output appropriate, a.m. hemoglobin appreciated. Will recheck tomorrow. Discussed postoperative precautions, expectations and follow-up. Anticipate discharge home in the next 48 hours. -Male, desires circumcision, did not pay, informed that would need to return to office , pay and then can have it done in 1-2 weeks. 2. Preeclampsia with severe features: Based on severe range blood pressures and protein creatinine ratio of 0.72. Blood pressures normotensive to mild range since delivery. Continue mag 2 g an hour for 24 hours (off 10 PM tonight) . -Discussed preeclampsia precautions, will need 1 week follow-up in the office.
--- NOTE | 2018-04-01 07:43 | P.DS ---
Date of admission: 03/30/18 18:36 Primary care physician: NOT REQUIRED Brief History from admission: 28-year-old 001 who presented to triage for contractions, was found to have elevated blood pressures, was diagnosed with preeclampsia with severe features and was induced. She progressed to complete had arrest of descent and underwent a primary low transverse section. On postoperative day #2 patient subjectively complained of weakness and numbness in her left lower extremity, an MRI of the thoracic and lumbar spine revealed no spinal hematoma, given the prolonged second stage and pushing efforts was believed a mild stretch injury to the femoral nerve, neurology saw the patient and agreed. Physical therapy saw the patient as well who recommended no outpatient therapy. Also on postoperative day #3 she required IV medication to control her blood pressure, was started on labetalol 200 mg twice a day, she was seen by my partner the following morning please see her documentation for any further interventions. On postoperative day #4 she was meeting all of her milestones and was discharged home DS: Medications - Discharge Medications Prescriptions: amlodipine [Norvasc] 5 mg PO DAILY 30 Days #30 tab ibuprofen [Motrin IB] 600 mg PO QID PRN 30 Days tab PRN Reason: Pain ibuprofen 600 mg PO Q6HR PRN 10 Days #60 tab PRN Reason: cramping labetalol 200 mg PO BID #60 tab oxycodone-acetaminophen [Percocet] 1 tab PO Q4-6H PRN #15 tab PRN Reason: Pain [id number] 1 cap PO DAILY 30 Days #30 tab-cap DS: Summary Hospital Course: See brief history - Time Spent with Patient Total time spent providing and/or coordinating discharge services: Exam Vital signs: Vital Signs 03/31/18 08:25 03/31/18 08:40 03/31/18 08:55 Temperature 98.3 F Pulse Rate 84 70 71 Respiratory Rate 20 Blood Pressure 156/85 H 125/66 126/68 03/31/18 09:04 03/31/18 09:15 03/31/18 09:25 Temperature 98.5 F Pulse Rate 74 76 Respiratory Rate 18 Blood Pressure 161/82 H 148/87 H 03/31/18 09:40 03/31/18 10:10 03/31/18 10:30 Temperature Pulse Rate 75 76 65 Respiratory Rate 18 16 Blood Pressure 143/79 H 142/82 H 140/67 03/31/18 10:40 03/31/18 10:55 03/31/18 11:10 Temperature Pulse Rate 66 67 81 Respiratory Rate Blood Pressure 113/60 124/64 163/83 H 03/31/18 11:25 03/31/18 11:40 03/31/18 11:55 Temperature 98.1 F Pulse Rate 74 74 73 Respiratory Rate 18 Blood Pressure 163/88 H 154/80 H 155/90 H 03/31/18 12:10 03/31/18 12:25 03/31/18 12:40 Temperature Pulse Rate 67 68 69 Respiratory Rate Blood Pressure 169/89 H 161/79 H 164/87 H 03/31/18 13:00 03/31/18 13:10 03/31/18 13:25 Temperature 98.9 F Pulse Rate 71 73 84 Respiratory Rate 18 Blood Pressure 148/68 H 148/76 H 156/91 H 03/31/18 13:55 03/31/18 15:00 03/31/18 15:25 Temperature 99.3 F Pulse Rate 75 81 81 Respiratory Rate 18 Blood Pressure 147/75 H 135/69 129/82 03/31/18 15:40 03/31/18 16:00 03/31/18 16:10 Temperature Pulse Rate 82 83 87 Respiratory Rate 16 Blood Pressure 137/83 136/81 130/74 03/31/18 16:15 03/31/18 17:10 03/31/18 17:15 Temperature Pulse Rate 82 80 82 Respiratory Rate 16 16 Blood Pressure 132/66 126/60 128/62 03/31/18 17:45 03/31/18 18:20 03/31/18 18:30 Temperature Pulse Rate 95 H 110 H 96 H Respiratory Rate Blood Pressure 158/91 H 158/81 H 154/85 H 03/31/18 18:45 03/31/18 19:15 03/31/18 20:00 Temperature 98.5 F Pulse Rate 97 H Respiratory Rate 20 18 Blood Pressure 159/79 H 152/74 H 03/31/18 20:02 03/31/18 20:45 03/31/18 21:00 Temperature Pulse Rate 101 H 91 H Respiratory Rate Blood Pressure 151/79 H 145/81 H 141/77 H 03/31/18 21:06 03/31/18 21:15 03/31/18 21:31 Temperature Pulse Rate 95 H Respiratory Rate 20 Blood Pressure 148/80 H 142/80 H 03/31/18 22:00 03/31/18 22:15 03/31/18 22:18 Temperature Pulse Rate 98 H 95 H Respiratory Rate Blood Pressure 129/81 140/78 03/31/18 23:50 04/01/18 00:00 04/01/18 00:15 Temperature 98.2 F Pulse Rate 90 101 H 102 H Respiratory Rate 18 18 18 Blood Pressure 166/86 H 149/81 H 156/84 H 04/01/18 00:30 04/01/18 00:41 04/01/18 00:58 Temperature Pulse Rate 94 H 80 Respiratory Rate 18 20 Blood Pressure 148/84 H 146/75 H 04/01/18 02:00 04/01/18 02:21 04/01/18 03:00 Temperature 98.7 F Pulse Rate 92 H 81 Respiratory Rate 18 18 Blood Pressure 153/77 H 133/63 04/01/18 04:00 04/01/18 04:02 04/01/18 05:00 Temperature Pulse Rate 80 Respiratory Rate 18 Blood Pressure 131/58 L 146/54 H 04/01/18 05:43 04/01/18 05:44 04/01/18 07:00 Temperature 98.4 F Pulse Rate 91 H 88 Respiratory Rate 18 18 Blood Pressure 136/61 Results Procedures completed during hospitalization: Primary low transverse section Labs on day of discharge: Labs from last 24 hours 04/01/18 05:58 CBC w Diff Slide review pending WBC 25.2 H RBC 3.19 L Hgb 9.7 L D Hct 28.5 L MCV 89.4 MCH 30.4 MCHC 34.0 RDW 13.8 Plt Count 221 MPV 9.0 Neut % (Auto) 90.8 H Lymph % (Auto) 4.[address] [place] % (Auto) 4.2 Eos % (Auto) 0.0 Baso % (Auto) 0.1 Neut # (Auto) 22.8 H Lymph # (Auto) 1.2 [place] # (Auto) 1.1 H Eos # (Auto) 0.0 Baso # (Auto) 0.0 WBC Differential . Differential Comment . Discharge Plan - Discharge Disposition Patient Disposition: 01 Discharge Home - Discharge Condition Condition: Stable - Discharge Order Discharge Orders: Discharge Order (Routine); Ordered 04/04/18 Ordered By: Osiris Costa - Discharge Details Anticipated Discharge Date: 04/04/18 - Physicians Team Primary Care Provider: NOT REQUIRED, Attending Provider: Osiris Costa Other Providers: Moises Recinos MD
[2018-04-01 08:05] LABS: Lymphocytes 6 % (9-44); Monocytes 1 % (0-8)
[2018-04-01 08:06] LABS: Platelet Estimate Normal (Normal); Platelet Morphology Normal (Normal)
[2018-04-01] MEDS ORDERED: Mag Sulf/Water 40 gm/1000 ml 40 GM/1,000 ML BAG IV.CONT SCH (12:45)
[2018-04-01] MEDS ORDERED: Mag Sulf/Water 40 gm/1000 ml 40 GM/1,000 ML BAG IV.CONT ONE (13:12)
[2018-04-01] MEDS ORDERED: Gadobutrol PF 7.5 MMOL/7.5 ML Vial (for RAD) IV.SIG ONE (14:00)
[2018-04-01] MEDS ORDERED: Witch Hazel 50%/Glyderin 12.5% 40 Pad Jar RECTAL PRN (15:14)
[2018-04-01] MEDS ORDERED: Benzocaine 20% Top Spray 60 ML Can TOPICAL PRN (15:15)
[2018-04-01] MEDS ORDERED: Measles/Mumps/Rubella Vaccine Inj 0.5 ML Vial SQ ONE (16:00)
[2018-04-01] MEDS ORDERED: Diphtheria/Tetanus/Pertussis Vaccine Inj 0.5 ML Syringe IM ONE (16:00)
--- NOTE | 2018-04-01 19:00 | P.OBGPN ---
Received call from nursing stating patient having unilateral lower extremity weakness, heaviness, numbness. Has not improved throughout the day, no worsening, nursing talked to anesthesia which they recommended MRI of the thoracic and lumbar spine, they requested me to order this to rule out a spinal hematoma. To note patient had an epidural replaced during her labor course and had a ~4 hour second stage from nursing report, could also compression related neuropathy of the femoral nerve due to prolonged flexion of the hip.
--- NOTE | 2018-04-01 21:52 | MR ---
EXAM DATE: 04/01/2018 9:47 PM EDT AGE/SEX: 28 years / Female INDICATIONS: . Post , had epidural, unilateral weakness and numbness with abnormal gait CLINICAL DATA: This is the patient's initial encounter. Patient reports that signs and symptoms have been present for 2 days and indicates a pain score of 7/10. MEDICAL/SURGICAL HISTORY: None. section. COMPARISON: No prior exams available for comparison. TECHNIQUE: Multiplanar, multisequence MRI examination of the lumbar spine was performed without and with 7 ml Gadavist (gadobutrol) contrast as a single exam dose. FINDINGS: The most caudal-appearing lumbar vertebra is numbered as L5. Vertebra: Homogeneous signal. Normal alignment. Conus: Normal level and configuration. Post Contrast: No abnormal areas of contrast enhancement are seen. T12-L1: The thecal sac has a normal diameter. No evidence of disc bulge or protrusion. The neural foramina are patent bilaterally. L1-L2: The thecal sac has a normal diameter. No evidence of disc bulge or protrusion. The neural foramina are patent bilaterally. L2-L3: The thecal sac has a normal diameter. No evidence of disc bulge or protrusion. The neural foramina are patent bilaterally. L3-L4: The thecal sac has a normal diameter. No evidence of disc bulge or protrusion. The neural foramina are patent bilaterally. L4-L5: The thecal sac has a normal diameter. No evidence of disc bulge or protrusion. The neural foramina are patent bilaterally. L5-S1: The thecal sac has a normal diameter. No evidence of disc bulge or protrusion. The neural foramina are patent bilaterally. CONCLUSION: 1. Negative MRI of the lumbar spine with and without contrast. Electronically signed by: Michael Pan MD 04/01/2018 9:51 PM EDT
--- NOTE | 2018-04-01 21:55 | MR ---
EXAM DATE: 04/01/2018 9:50 PM EDT AGE/SEX: 28 years / Female INDICATIONS: . Post , had epidural, unilateral left sided weakness and numbness, CLINICAL DATA: This is the patient's initial encounter. Patient reports that signs and symptoms have been present for 2 days and indicates a pain score of 7/10. MEDICAL/SURGICAL HISTORY: None. section. COMPARISON: No prior exams available for comparison. TECHNIQUE: Multiplanar, multisequence MRI of the thoracic spine was performed without and with 7 ml Gadavist (gadobutrol) contrast as a single exam dose. FINDINGS: Vertebrae: Normal vertebral body height. Homogeneous marrow signal. Alignment: Normal. Cord: Normal position and configuration. Post Contrast: No abnormal areas of enhancement are seen in the cord, dural or paraspinal regions. T1-T2: The thecal sac has a normal diameter. No evidence of disc bulge or protrusion. T2-T3: The thecal sac has a normal diameter. No evidence of disc bulge or protrusion. T3-T4: The thecal sac has a normal diameter. No evidence of disc bulge or protrusion. T4-T5: The thecal sac has a normal diameter. No evidence of disc bulge or protrusion. T5-T6: The thecal sac has a normal diameter. No evidence of disc bulge or protrusion. T6-T7: The thecal sac has a normal diameter. No evidence of disc bulge or protrusion. T7-T8: The thecal sac has a normal diameter. No evidence of disc bulge or protrusion. T8-T9: The thecal sac has a normal diameter. No evidence of disc bulge or protrusion. T9-T10: The thecal sac has a normal diameter. No evidence of disc bulge or protrusion. T10-T11: The thecal sac has a normal diameter. No evidence of disc bulge or protrusion. T11-T12: The thecal sac has a normal diameter. No evidence of disc bulge or protrusion. T12-L1: The thecal sac has a normal diameter. No evidence of disc bulge or protrusion. CONCLUSION: 1. Negative MRI of the thoracic spine with and without contrast. 2. Incidental note of a small right pleural effusion. Electronically signed by: Michael Pan MD 04/01/2018 9:53 PM EDT
--- NOTE | 2018-04-01 23:13 | P.OBGPN ---
S: Patient still has left lower extremity weakness and numbness. She states that she believes she felt that in the midst of pushing prior to her delivery yesterday. O: VS: Exam: Right lower extremity: 5 out of 5 strength with hip flexion and knee extension Left lower extremity: 4/5 strength with hip flexion, 3/5 strength with knee extension. Numbness over entire anterior portion of thigh and leg Normal-appearing lower extremities bilaterally. No clubbing cyanosis or edema A/P 28-year-old status post primary low transverse for arrest of descent 1. day/postoperative day #1: Meeting milestones, acute blood loss anemia, asymptomatic and vital signs stable, check hemoglobin again tomorrow morning 2. Preeclampsia with severe features: Blood pressures mostly normotensive, magnesium discontinued. Continue to trend blood pressures. 3. Left lower extremity weakness/numbness: Likely femoral nerve injury, suspect nerve compression and stretch from extreme hip flexion during pushing, was in this position for 3-4 hours. Normal MRI of lumbar and thoracic spine. Will touch base with surgeon who performed her , based on brief op note and routine surgical procedures for femoral nerve injury is very unlikely. Discussed with patient and her mother in law that likely will need time in physical therapy for recovery over the next few weeks. Will consult neurology and physical therapy tomorrow.
[2018-04-02 06:24] LABS: Hematocrit 24.8 % (35.0-46.0); Hemoglobin 8.4 gm/dL (11.6-15.3); Mean Corpuscular HGB Conc 33.9 % (32.0-36.0); Mean Corpuscular Hemoglobin 30.6 pg (27.0-34.0); Mean Corpuscular Volume 90.3 fL (80.0-100.0); Platelet Count 227 th/mm3 (150-450); Red Blood Count 2.74 mil/mm3 (4.00-5.30); Red Cell Distribution Width 13.7 % (11.6-17.2); White Blood Count 17.3 th/mm3 (4.0-11.0)
--- NOTE | 2018-04-02 07:49 | P.PNOB ---
Subjective Post op day: 2 Interval history: Patient is doing well, pain controlled, vaginal bleeding less than menses, feels her left leg is still, has not tried to ambulate, denies headache, blurred vision or epigastric pain. Objective Vital Signs/I&O: Vital Signs 04/01/18 08:00 04/01/18 08:03 04/01/18 09:00 Temperature 98.5 F Pulse Rate 75 Respiratory Rate 18 18 Blood Pressure 135/73 04/01/18 09:15 04/01/18 10:00 04/01/18 11:00 Temperature Pulse Rate 85 87 73 Respiratory Rate 18 Blood Pressure 150/74 H 140/69 121/61 04/01/18 12:35 04/01/18 13:00 04/01/18 14:10 Temperature 97.8 F Pulse Rate 85 78 88 Respiratory Rate 18 Blood Pressure 144/80 H 136/77 140/73 04/01/18 14:15 04/01/18 14:55 04/01/18 15:05 Temperature Pulse Rate 90 89 86 Respiratory Rate 18 Blood Pressure 140/76 04/01/18 15:55 04/01/18 16:05 04/01/18 16:55 Temperature Pulse Rate 88 95 H 95 H Respiratory Rate Blood Pressure 140/65 04/01/18 17:00 04/01/18 17:35 04/01/18 17:55 Temperature Pulse Rate 99 H 82 Respiratory Rate 18 Blood Pressure 131/77 133/66 04/01/18 20:00 04/02/18 00:00 04/02/18 04:00 Temperature 98.7 F 99.3 F 98.8 F Pulse Rate 92 H 82 75 Respiratory Rate 18 18 19 Blood Pressure 145/76 H 153/93 H 137/73 Intake & Output 04/01/18 04/02/18 04/02/18 18:59 06:59 18:59 Intake Total 100 / 100 Balance 100 / 100 Intake: IV 100 / 100 Ofirmev Inj 1,000 mg In 100 ml 100 / 100 @ 400 mls/hr IV.SIG Q8H [facility] Rx# :[id number] Result Diagrams: 04/02/18 06:06 03/30/18 19:30 Objective Remarks: GENERAL: Well-nourished, well-developed patient. CARDIOVASCULAR: Regular rate and rhythm without murmurs, gallops, or rubs. RESPIRATORY: Breath sounds equal bilaterally. No accessory muscle use. ABDOMEN/GI: Abdomen soft, non-tender, bowel sounds present. Bandage: Clean, dry and intact. Fundus: Firm, non-tender at umbilicus. GENITOURINARY: Light to moderate bleeding. EXTREMITIES: No cyanosis or edema, non-tender, without signs of DVT. SCDs on. Right lower extremity: 5 out of 5 strength with hip flexion and leg extension Left lower extremity: 4 out of 5 strength with hip flexion and leg extension. Still numbness over the anterior aspect of the leg. Medications and IVs: Active Medications Acetaminophen (Tylenol) 650 mg PO Q6H PRN PRN Reason: PAIN SCALE 1 TO 2 Benzocaine (Americaine 20% Top [place]) 1 spray TOPICAL Q6H PRN PRN Reason: WOUND CARE Fentanyl Citrate (Fentanyl Inj) 50 mcg IV.PUSH Q1H PRN PRN Reason: Pain Scale 3 - 5 Fentanyl Citrate (Fentanyl Inj) 100 mcg IV.PUSH Q1H PRN PRN Reason: PAIN SCALE 6 TO 10 Oxytocin (Pitocin 30 Units/Ns 500 Ml Premix) 30 units in 500 mls @ 1 mls/hr IV.SIG TITRATE PRN; Protocol PRN Reason: For induction of labor Oxytocin (Pitocin 30 Units/Ns 500 Ml Premix) 30 units in 500 mls @ 1 mls/hr IV.CONT TITRATE PRN; Protocol PRN Reason: For induction of labor Lactated Ringer's (Lr 1000 Ml Inj) 1,000 mls @ 75 mls/hr IV.CONT .[id number] [facility] Last Admin: 04/01/18 09:12 Dose: 75 mls/hr Calcium Chloride 0.34 gm/ (Sodium Chloride) 103.4 mls @ 103.4 mls/hr IV.SIG UNSCH PRN PRN Reason: MAGNESIUM TOXICITY Lidocaine HCl (Xylocaine 1% Inj) 0.1 ml I-DERMAL PRN PRN PRN Reason: For IV start Stop: 04/02/18 18:28 Naloxone HCl (Narcan Inj) 0.1 mg IV.PUSH Q2M PRN PRN Reason: for opiate reversal Ondansetron HCl (Zofran Odt) 4 mg PO Q4H PRN PRN Reason: NAUSEA OR VOMITING Last Admin: 03/31/18 09:19 Dose: 4 mg Oxycodone/Acetaminophen (Percocet 5/325 Mg) 1 tab PO Q4H PRN PRN Reason: PAIN SCALE 3 TO 5 Oxycodone/Acetaminophen (Percocet 5/325 Mg) 2 tab PO Q4H PRN PRN Reason: PAIN SCALE 6 TO 10 Simethicone (Mylicon Chew) 80 mg PO QID PRN PRN Reason: FLATULENCE Last Admin: 04/01/18 09:12 Dose: 80 mg Sodium Chloride (Ns Flush) 2 ml IV.FLUSH BID [facility] Last Admin: 04/01/18 13:18 Dose: Not Given Sodium Chloride (Ns Flush) 2 ml IV.FLUSH PRN PRN PRN Reason: FLUSH AFTER USING IV ACCESS Sodium Chloride (Ns Flush) 2 ml IV.FLUSH BID [facility] Last Admin: 04/01/18 13:18 Dose: Not Given Sodium Chloride (Ns Flush) 2 ml IV.FLUSH PRN PRN PRN Reason: FLUSH AFTER USING IV ACCESS Witch Va/Glycerin (Tucks Pads) 1 applicatio RECTAL PRN PRN PRN Reason: Acute Pain Zolpidem Tartrate (Ambien) 5 mg PO HS PRN PRN Reason: INSOMNIA Assessment and Plan - Plan s/p PLTCS at 38w for arrest of descent. 1. Postoperative/ day #2: Afebrile, vital signs stable, output appropriate, a.m. hemoglobin appreciated. Will recheck tomorrow. Discussed postoperative precautions, expectations and follow-up. Anticipate discharge home in the next 48 hours. -Male, desires circumcision, did not pay, informed that would need to return to office , pay and then can have it done in 1-2 weeks. 2. Preeclampsia with severe features: Based on severe range blood pressures and protein creatinine ratio of 0.72. Blood pressures normotensive to mild range since delivery. s/p mag -Discussed preeclampsia precautions, will need 1 week follow-up in the office. 3. Anemia: No signs of hemodynamic instability, however patient has not been ambulatory yet. Will recheck CBC tomorrow. T&C x2 4. Left lower extremity numbness and weakness: Suspect stretch injury during second stage. Have consulted neurology for evaluation and any recommendations. Consult physical therapy as well. Discussed with patient would keep Dominguez in at this time until his sickle therapy evaluates and instructed on walker use. Orders for nursing to assist with transferring and ambulation. Provided patient reassurance that likely will resolve with time and possible physical therapy.
--- NOTE | 2018-04-02 12:36 | P.CONNEU ---
History of Present Illness Service: Neurology Primary Care Provider: NOT REQUIRED Chief Complaint: Contractions History of Present Illness: 28-year-old female admitted for . Underwent on 03/31/2018. Subsequently developed heavy feeling in her left leg. She feels it is a little better today. Feels a heaviness in her buttocks region denies any radiating symptoms feels all difficulty curling her left toes. Denies any headache and facial symptoms or upper extremity weakness. Denies any tingling paresthesias vision changes vertigo diplopia. Had a MRI T and L-spine no cord lesion no sniffing foraminal stenosis. Review of Systems All other systems reviewed negative except as stated in HPI Medications and Allergies Active Medications: Active Medications Acetaminophen (Tylenol) 650 mg PO Q6H PRN PRN Reason: PAIN SCALE 1 TO 2 Benzocaine (Americaine 20% Top [place]) 1 spray TOPICAL Q6H PRN PRN Reason: WOUND CARE Fentanyl Citrate (Fentanyl Inj) 50 mcg IV.PUSH Q1H PRN PRN Reason: Pain Scale 3 - 5 Fentanyl Citrate (Fentanyl Inj) 100 mcg IV.PUSH Q1H PRN PRN Reason: PAIN SCALE 6 TO 10 Oxytocin (Pitocin 30 Units/Ns 500 Ml Premix) 30 units in 500 mls @ 1 mls/hr IV.SIG TITRATE PRN; Protocol PRN Reason: For induction of labor Oxytocin (Pitocin 30 Units/Ns 500 Ml Premix) 30 units in 500 mls @ 1 mls/hr IV.CONT TITRATE PRN; Protocol PRN Reason: For induction of labor Lactated Ringer's (Lr 1000 Ml Inj) 1,000 mls @ 75 mls/hr IV.CONT .[id number] [facility] Last Admin: 04/01/18 09:12 Dose: 75 mls/hr Calcium Chloride 0.34 gm/ (Sodium Chloride) 103.4 mls @ 103.4 mls/hr IV.SIG UNSCH PRN PRN Reason: MAGNESIUM TOXICITY Lidocaine HCl (Xylocaine 1% Inj) 0.1 ml I-DERMAL PRN PRN PRN Reason: For IV start Stop: 04/02/18 18:28 Naloxone HCl (Narcan Inj) 0.1 mg IV.PUSH Q2M PRN PRN Reason: for opiate reversal Ondansetron HCl (Zofran Odt) 4 mg PO Q4H PRN PRN Reason: NAUSEA OR VOMITING Last Admin: 03/31/18 09:19 Dose: 4 mg Oxycodone/Acetaminophen (Percocet 5/325 Mg) 1 tab PO Q4H PRN PRN Reason: PAIN SCALE 3 TO 5 Oxycodone/Acetaminophen (Percocet 5/325 Mg) 2 tab PO Q4H PRN PRN Reason: PAIN SCALE 6 TO 10 Simethicone (Mylicon Chew) 80 mg PO QID PRN PRN Reason: FLATULENCE Last Admin: 04/01/18 09:12 Dose: 80 mg Sodium Chloride (Ns Flush) 2 ml IV.FLUSH BID [facility] Last Admin: 04/01/18 13:18 Dose: Not Given Sodium Chloride (Ns Flush) 2 ml IV.FLUSH PRN PRN PRN Reason: FLUSH AFTER USING IV ACCESS Sodium Chloride (Ns Flush) 2 ml IV.FLUSH BID [facility] Last Admin: 04/01/18 13:18 Dose: Not Given Sodium Chloride (Ns Flush) 2 ml IV.FLUSH PRN PRN PRN Reason: FLUSH AFTER USING IV ACCESS Witch Va/Glycerin (Tucks Pads) 1 applicatio RECTAL PRN PRN PRN Reason: Acute Pain Zolpidem Tartrate (Ambien) 5 mg PO HS PRN PRN Reason: INSOMNIA Allergies Allergy/AdvReac Type Severity Reaction Status Date / Time No Known Allergies Allergy Unverified 10/11/17 01:21 Home Medications Medication Instructions Recorded Confirmed Type [id number] [id number] 1 PO DAILY 03/30/18 History Exam Vital signs: Vital Signs 04/01/18 12:35 04/01/18 13:00 04/01/18 14:10 Temperature 97.8 F Pulse Rate 85 78 88 Respiratory Rate 18 Blood Pressure 144/80 H 136/77 140/73 04/01/18 14:15 04/01/18 14:55 04/01/18 15:05 Temperature Pulse Rate 90 89 86 Respiratory Rate 18 Blood Pressure 140/76 04/01/18 15:55 04/01/18 16:05 04/01/18 16:55 Temperature Pulse Rate 88 95 H 95 H Respiratory Rate Blood Pressure 140/65 04/01/18 17:00 04/01/18 17:35 04/01/18 17:55 Temperature Pulse Rate 99 H 82 Respiratory Rate 18 Blood Pressure 131/77 133/66 04/01/18 20:00 04/02/18 00:00 04/02/18 04:00 Temperature 98.7 F 99.3 F 98.8 F Pulse Rate 92 H 82 75 Respiratory Rate 18 18 19 Blood Pressure 145/76 H 153/93 H 137/73 04/02/18 08:00 04/02/18 12:00 Temperature 98.6 F 98.2 F Pulse Rate 86 73 Respiratory Rate 18 18 Blood Pressure 135/81 151/91 H Intake & Output 04/01/18 04/02/18 04/02/18 18:59 06:59 18:59 Intake Total 100 / 100 Balance 100 / 100 Intake: IV 100 / 100 Ofirmev Inj 1,000 mg In 100 ml 100 / 100 @ 400 mls/hr IV.SIG Q8H [facility] Rx# :[id number] Narrative: Awake alert oriented 3 nursing her baby nurse at bedside during examination mental status intact no aphasia no cranial nerve deficit noted approximately strength 5 out of 5 lower semi-strength 5 out of 5 with the exception of mild left foot toe flexion weakness 5- out of 5 compared to the right left foot plantar flexion 5- out of 5 dorsiflexion 5- out of 5 inversion eversion 5- out of 5 slightly weak compared to the right foot able to raise both lower extremity gravity for at least 10 seconds hip extension, flexion hip abduction abduction 5 out of 5. Reflexes are 2++ plantarflex her no clonus. Light touch pinprick were intact in both lower extremities gait not assessed secondary potential fall risk - Constitutional no acute distress - Routine HEENT Exam Head: Present: normocephalic, atraumatic - Routine Neck Exam Present: supple, full ROM - Routine Abdominal Exam Present: soft Results - Labs CBC & Chem 7: 04/02/18 06:06 03/30/18 19:30 Labs: Laboratory Results - last 24 hr 04/02/18 04/02/18 06:06 10:43 WBC 17.3 H RBC 2.74 L Hgb 8.4 L Hct 24.8 L MCV 90.3 MCH 30.6 MCHC 33.9 RDW 13.7 Plt Count 227 MPV 8.0 Blood Type O Positive Antibody Screen Negative MTS Gel Crossmatch See Detail - Imaging Impressions Lumbar Spine MRI 04/01/18 18:54 CONCLUSION: 1. Negative MRI of the lumbar spine with and without contrast. Thoracic Spine MRI 04/01/18 18:54 CONCLUSION: 1. Negative MRI of the thoracic spine with and without contrast. 2. Incidental note of a small right pleural effusion. 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 Suspect it should improve over time Unlikely to be a stroke and has very minimal deficits on exam Recommendations physical therapy from our standpoint Discussed patient could take few weeks for her to improve would suspect a full recovery Blood pressure control per [employer] Symptoms persist she can follow-up with us in the office where we can consider MRI brain and EMG of her legs We will sign off contact us if needed
[2018-04-02] MEDS: Ibuprofen 600 MG Tablet PO PRN (18:43)
[2018-04-03] MEDS: Ibuprofen 600 MG Tablet PO PRN ×3 (00:55→15:33)
[2018-04-03 06:24] LABS: Hematocrit 27.8 % (35.0-46.0); Hemoglobin 9.4 gm/dL (11.6-15.3); Mean Corpuscular HGB Conc 33.7 % (32.0-36.0); Mean Corpuscular Hemoglobin 30.7 pg (27.0-34.0); Mean Platelet Volume 7.5 fL (7.0-11.0); Platelet Count 311 th/mm3 (150-450); Red Blood Count 3.05 mil/mm3 (4.00-5.30); Red Cell Distribution Width 13.9 % (11.6-17.2)
--- NOTE | 2018-04-03 08:24 | P.PNOB ---
Subjective Post op day: 3 Interval history: Doing well, pain controlled, ambulating now with minimal assistance, still some numbness, vaginal bleeding less than menses, denies headache, blurred vision or epigastric pain. Objective Vital Signs/I&O: Vital Signs 04/02/18 12:00 04/02/18 16:00 04/02/18 20:00 Temperature 98.2 F 98.7 F Pulse Rate 73 82 69 Respiratory Rate 18 20 18 Blood Pressure 151/91 H 153/91 H 148/91 H 04/03/18 04:45 Temperature 98.3 F Pulse Rate 68 Respiratory Rate 18 Blood Pressure 138/80 Result Diagrams: 04/03/18 06:07 03/30/18 19:30 Objective Remarks: GENERAL: Well-nourished, well-developed patient. CARDIOVASCULAR: Regular rate and rhythm without murmurs, gallops, or rubs. RESPIRATORY: Breath sounds equal bilaterally. No accessory muscle use. ABDOMEN/GI: Abdomen soft, non-tender, bowel sounds present. Incision: Clean, dry and intact. Fundus: Firm, non-tender at umbilicus. GENITOURINARY: Light to moderate bleeding. EXTREMITIES: No cyanosis or edema, non-tender, without signs of DVT. Medications and IVs: Active Medications Acetaminophen (Tylenol) 650 mg PO Q6H PRN PRN Reason: PAIN SCALE 1 TO 2 Benzocaine (Americaine 20% Top [place]) 1 spray TOPICAL Q6H PRN PRN Reason: WOUND CARE Fentanyl Citrate (Fentanyl Inj) 50 mcg IV.PUSH Q1H PRN PRN Reason: Pain Scale 3 - 5 Fentanyl Citrate (Fentanyl Inj) 100 mcg IV.PUSH Q1H PRN PRN Reason: PAIN SCALE 6 TO 10 Oxytocin (Pitocin 30 Units/Ns 500 Ml Premix) 30 units in 500 mls @ 1 mls/hr IV.SIG TITRATE PRN; Protocol PRN Reason: For induction of labor Oxytocin (Pitocin 30 Units/Ns 500 Ml Premix) 30 units in 500 mls @ 1 mls/hr IV.CONT TITRATE PRN; Protocol PRN Reason: For induction of labor Lactated Ringer's (Lr 1000 Ml Inj) 1,000 mls @ 75 mls/hr IV.CONT .[id number] [facility] Last Admin: 04/01/18 09:12 Dose: 75 mls/hr Calcium Chloride 0.34 gm/ (Sodium Chloride) 103.4 mls @ 103.4 mls/hr IV.SIG UNSCH PRN PRN Reason: MAGNESIUM TOXICITY Naloxone HCl (Narcan Inj) 0.1 mg IV.PUSH Q2M PRN PRN Reason: for opiate reversal Ondansetron HCl (Zofran Odt) 4 mg PO Q4H PRN PRN Reason: NAUSEA OR VOMITING Last Admin: 03/31/18 09:19 Dose: 4 mg Oxycodone/Acetaminophen (Percocet 5/325 Mg) 1 tab PO Q4H PRN PRN Reason: PAIN SCALE 3 TO 5 Last Admin: 04/03/18 00:56 Dose: 1 tab Oxycodone/Acetaminophen (Percocet 5/325 Mg) 2 tab PO Q4H PRN PRN Reason: PAIN SCALE 6 TO 10 Simethicone (Mylicon Chew) 80 mg PO QID PRN PRN Reason: FLATULENCE Last Admin: 04/01/18 09:12 Dose: 80 mg Sodium Chloride (Ns Flush) 2 ml IV.FLUSH BID [facility] Last Admin: 04/01/18 13:18 Dose: Not Given Sodium Chloride (Ns Flush) 2 ml IV.FLUSH PRN PRN PRN Reason: FLUSH AFTER USING IV ACCESS Sodium Chloride (Ns Flush) 2 ml IV.FLUSH BID [facility] Last Admin: 04/03/18 00:55 Dose: 2 ml Sodium Chloride (Ns Flush) 2 ml IV.FLUSH PRN PRN PRN Reason: FLUSH AFTER USING IV ACCESS Witch Va/Glycerin (Tucks Pads) 1 applicatio RECTAL PRN PRN PRN Reason: Acute Pain Zolpidem Tartrate (Ambien) 5 mg PO HS PRN PRN Reason: INSOMNIA Assessment and Plan - Plan s/p PLTCS at 38w for arrest of descent. 1. Postoperative/ day #3: Afebrile, vital signs stable, see #4, d/c likely for tomorrow and FU 1 week. -Male, desires circumcision, did not pay, informed that would need to return to office , pay and then can have it done in 1-2 weeks. 2. Preeclampsia with severe features: Based on severe range blood pressures and protein creatinine ratio of 0.72. Blood pressures normotensive to mild range since delivery. s/p mag -Discussed preeclampsia precautions, will need 1 week follow-up in the office. 3. Anemia: Hb improved from yesterday, pt asymptomatic. 4. Left lower extremity numbness and weakness: Improving, status post physical therapy yesterday, appears by their note they will see her again today. No plans for outpatient physical therapy. Patient may need a walker or cane for assistance at home. Will observe until tomorrow, patient has been out of town and will return tomorrow as well. Neurology saw patient and no need for follow- up unless persistent problem. Provided reassurance to patient that likely to resolve completely with time.
[2018-04-03] MEDS ORDERED: Labetalol HCl Inj 100 MG/20 ML Vial IV.PUSH PRN ×3 (19:44→20:06)
--- NOTE | 2018-04-03 19:50 | P.OBGPN ---
Received call from nursing, states pt blood pressure is 160/90 x 2, pt asymptomatic and denies any asthma, Rec to follow OB HTN protocol, give 20mg IV labetalol now, call if severe on repeat check and begin PO labetalol 200mg PO BID. May need mag if requires repeat dosing of labetalol.
[2018-04-03] MEDS ORDERED: Labetalol 200 MG Tablet PO SCH (21:00)
[2018-04-04] MEDS: Ibuprofen 600 MG Tablet PO PRN ×2 (00:13→08:58)
--- NOTE | 2018-04-04 07:50 | P.PNOB ---
Subjective Post op day: 4 Interval history: very tender today both incision site and labia no headaches, nausea, vomiting states has lots of milk and nursing going well wants to go home and has great support there--knows her BP will go down if she is at home Objective Vital Signs/I&O: Vital Signs 04/03/18 11:19 04/03/18 15:28 04/03/18 17:00 Temperature 98.1 F 98.8 F Pulse Rate 81 77 Respiratory Rate 18 14 Blood Pressure 150/87 H 159/86 H 150/84 H 04/03/18 19:33 04/03/18 19:40 04/03/18 20:01 Temperature 98.3 F Pulse Rate 73 Respiratory Rate 12 18 Blood Pressure 162/99 H 160/99 H 161/99 H 04/03/18 20:15 04/03/18 20:40 04/03/18 21:35 Temperature Pulse Rate 64 84 Respiratory Rate 18 Blood Pressure 161/88 H 130/83 141/88 H 04/04/18 00:13 04/04/18 02:15 04/04/18 02:16 Temperature 98.1 F Pulse Rate 112 H Respiratory Rate 18 18 18 Blood Pressure 151/79 H 04/04/18 04:02 Temperature Pulse Rate 71 Respiratory Rate Blood Pressure 157/88 H Result Diagrams: 04/03/18 06:07 03/30/18 19:30 Objective Remarks: GENERAL: Well-nourished, well-developed patient. CARDIOVASCULAR: Regular rate and rhythm without murmurs, gallops, or rubs. RESPIRATORY: Breath sounds equal bilaterally. No accessory muscle use. ABDOMEN/GI: Abdomen soft, non-tender, bowel sounds present. Incision: Clean, dry and intact. rash from tape noted Fundus: Firm, non-tender at umbilicus. GENITOURINARY: Light to moderate bleeding. labia still swollen EXTREMITIES: No cyanosis or edema, non-tender, without signs of DVT. Medications and IVs: Active Medications Acetaminophen (Tylenol) 650 mg PO Q6H PRN PRN Reason: PAIN SCALE 1 TO 2 Benzocaine (Americaine 20% Top [place]) 1 spray TOPICAL Q6H PRN PRN Reason: WOUND CARE Calcium Gluconate (Calcium Gluconate Inj) 1 gm IV.PUSH PRN PRN PRN Reason: Magnesium toxicity Fentanyl Citrate (Fentanyl Inj) 50 mcg IV.PUSH Q1H PRN PRN Reason: Pain Scale 3 - 5 Fentanyl Citrate (Fentanyl Inj) 100 mcg IV.PUSH Q1H PRN PRN Reason: PAIN SCALE 6 TO 10 Oxytocin (Pitocin 30 Units/Ns 500 Ml Premix) 30 units in 500 mls @ 1 mls/hr IV.SIG TITRATE PRN; Protocol PRN Reason: For induction of labor Oxytocin (Pitocin 30 Units/Ns 500 Ml Premix) 30 units in 500 mls @ 1 mls/hr IV.CONT TITRATE PRN; Protocol PRN Reason: For induction of labor Lactated Ringer's (Lr 1000 Ml Inj) 1,000 mls @ 75 mls/hr IV.CONT .[id number] [facility] Last Admin: 04/01/18 09:12 Dose: 75 mls/hr Calcium Chloride 0.34 gm/ (Sodium Chloride) 103.4 mls @ 103.4 mls/hr IV.SIG UNSCH PRN PRN Reason: MAGNESIUM TOXICITY Labetalol HCl (Trandate Inj) 80 mg IV.PUSH NOW PRN PRN Reason: SEE LABEL COMMENTS Labetalol HCl (Trandate) 200 mg PO BID [facility] Last Admin: 04/03/18 20:03 Dose: 200 mg Naloxone HCl (Narcan Inj) 0.1 mg IV.PUSH Q2M PRN PRN Reason: for opiate reversal Ondansetron HCl (Zofran Odt) 4 mg PO Q4H PRN PRN Reason: NAUSEA OR VOMITING Last Admin: 03/31/18 09:19 Dose: 4 mg Oxycodone/Acetaminophen (Percocet 5/325 Mg) 1 tab PO Q4H PRN PRN Reason: PAIN SCALE 3 TO 5 Last Admin: 04/04/18 00:13 Dose: 1 tab Oxycodone/Acetaminophen (Percocet 5/325 Mg) 2 tab PO Q4H PRN PRN Reason: PAIN SCALE 6 TO 10 Simethicone (Mylicon Chew) 80 mg PO QID PRN PRN Reason: FLATULENCE Last Admin: 04/01/18 09:12 Dose: 80 mg Sodium Chloride (Ns Flush) 2 ml IV.FLUSH BID [facility] Last Admin: 04/01/18 13:18 Dose: Not Given Sodium Chloride (Ns Flush) 2 ml IV.FLUSH PRN PRN PRN Reason: FLUSH AFTER USING IV ACCESS Sodium Chloride (Ns Flush) 2 ml IV.FLUSH BID [facility] Last Admin: 04/03/18 00:55 Dose: 2 ml Sodium Chloride (Ns Flush) 2 ml IV.FLUSH PRN PRN PRN Reason: FLUSH AFTER USING IV ACCESS Witch Va/Glycerin (Tucks Pads) 1 applicatio RECTAL PRN PRN PRN Reason: Acute Pain Zolpidem Tartrate (Ambien) 5 mg PO HS PRN PRN Reason: INSOMNIA Assessment and Plan - Plan s/p PLTCS at 38w for arrest of descent. 1. Postoperative/ day #3: Afebrile, vital signs stable, see #4, d/c likely for tomorrow and FU 1 week. -Male, desires circumcision, did not pay, informed that would need to return to office , pay and then can have it done in 1-2 weeks. 2. Preeclampsia with severe features: Based on severe range blood pressures and protein creatinine ratio of 0.72. Blood pressures normotensive to mild range since delivery. s/p mag -Discussed preeclampsia precautions, will need 1 week follow-up in the office. 3. Anemia: Hb improved from yesterday, pt asymptomatic. 4. Left lower extremity numbness and weakness: Improving, status post physical therapy yesterday, appears by their note they will see her again today. No plans for outpatient physical therapy. Patient may need a walker or cane for assistance at home. Will observe until tomorrow, patient has been out of town and will return tomorrow as well. Neurology saw patient and no need for follow- up unless persistent problem. Provided reassurance to patient that likely to resolve completely with time. 04/04/18 POD 4 still mildly hypertensive on labatelol but no other symptoms and needs to go home. (I agree) Good support and understands when to contact us) will add norvasc at discharge will give ofirmev one time and then venifer and then discharge RTO one week counseled in depth
[2018-04-04] MEDS ORDERED: Iron Sucrose Inj 200 MG in Sodium Chlor 0.9% Inj 100 ML IV.SIG ONE (09:00)
[2018-04-04] MEDS ORDERED: amLODIPine 5 MG Tablet PO SCH (09:00)
[2018-04-04] MEDS ORDERED: Labetalol 200 MG Tablet PO SCH (09:00)
== END 2018-04-04 12:48 | disposition home or self-care (01) ==
LOC: HOBED 17:47 → H2E 18:36 → H1EA 04-01 23:21
PROVIDERS: ADMIT Obstetrics & Gynecology; ATTEND Obstetrics & Gynecology